=== PATIENT | female | born 1980 | race Caucasian/White ===

== ENCOUNTER 2016-07-27 09:28 | Emergency (ER) | payer BC ==
--- NOTE | ~2016-07-27 | CT4 ---
[facility] A Service of [facility] RADIOLOGY TEXT RESULTS PATIENT: MARYCHUY MOYA LOCATION: [facility] : 76 UNIT #: [id number] AGE: [address]: Renzo Loco MD SEX: F ORDER DR: [id number] [facility] [address] [place], [place] [address] [id number] MR#: [id number] #: [id number] NAME: MARYCHUY MOYA. : 1980 SEX: F STUDY DATE/TIME: 07/27/2016 11:37 UNIT: [facility] ROOM: STUDY DESCRIPTION: CT Abd and Pelv Wo Cont Attending Physician: Renzo Loco M.D. Ordering Physician: Renzo Loco M.D. Primary Care Physician: Bar Moore M.D. MEDICAL IMAGING REPORT This report is preliminary unless electronic signature is present EXAM Abdomen and pelvis CT no contrast 07/27/2016 INDICATION 36-year-old female with flank pain on the left, sharp throbbing pain that began yesterday. History of kidney stones and hypertension. Status post appendectomy. TECHNIQUE AND COMPARISON Noncontrast CT of the abdomen and pelvis was performed and compared with 07/13/2012. This CT exam was performed with one or more of the following radiation dose reduction techniques: Automatic exposure control, adjustment of mA and/or kV according to patient size, and iterative reconstruction. FINDINGS CT ABDOMEN: Exam degraded by noncontrast technique. Included lung bases are clear. No pleural or pericardial effusion. Probable sebaceous cyst or epidermal inclusion cyst associated with the subcutaneous fat of the upper abdominal/lower thoracic wall measuring 1.3 cm. This cannot be further assessed with noncontrast CT and is entirely nonspecific. Aorta demonstrates no aneurysm. The spleen, adrenal glands, and pancreas are unremarkable. Gallbladder demonstrates probably uncomplicated cholelithiasis. The liver demonstrates a stable tiny cyst measuring 5 mm in the right hepatic lobe. Kidneys demonstrate no radiopaque stone, hydronephrosis, or focal inflammatory change. To the extent visualized, the ureters are unremarkable. No fluid collection or adenopathy. CT PELVIS: The bladder is distended but, otherwise, unremarkable. There are probable vascular calcifications in the pelvis. Some of which are in close proximity to the expected location of the UVJ but there is no STS. [facility] A Service of [facility] RADIOLOGY TEXT RESULTS PATIENT: MARYCHUY MOYA LOCATION: [facility] : 76 UNIT #: [id number] AGE: [address]: Renzo Loco MD SEX: F ORDER DR: secondary sign of obstruction on either side. Correlate with urinalysis. No drainable fluid collection in the pelvis or adnexal mass. Appendix surgically absent. Inguinal canals are unremarkable. Osseous structures demonstrate no suspicious bone lesion. IMPRESSION 1. Essentially negative noncontrast abdomen and pelvis CT. No hydronephrosis or radiopaque stone associated with either kidney. Probable vascular calcifications in the pelvis. 2. Stable cyst within the liver. 3. Status post appendectomy. Dictated by... Yonatan Ceballos M.D. THIS IS AN ELECTRONICALLY VERIFIED REPORT Yonatan Ceballos M.D. at 07/28/2016 9:49 AM BRIGITTE/lois TD: 07/27/2016 17:19 JOB #: [id number] MEDICAL IMAGING REPORT Page 1 of 1 COPY
[~2016-07-27 09:28] MED LIST: CLEOCIN PO; NEXIUM PO; VICODIN 5/1 TAB 5/50 PO; VICODIN 5/500 T1 TAB PO
[2016-07-27 10:33] LABS: URINE SOURCE CLEAN CATCH
[2016-07-27 10:40] LABS: URINE APPEARANCE CLOUDY; URINE BILIRUBIN NEG (NEG); URINE BLOOD TRACE (NEG); URINE COLOR YELLOW; URINE GLUCOSE NEG (NEG); URINE KETONE NEG (NEG); URINE LEUKOCYTE ESTERASE 3+ (NEG); URINE NITRATE NEG (NEG); URINE PROTEIN NEG (NEG); URINE SPECIFIC GRAVITY 1.006 (1.003-1.035); URINE UROBILINOGEN 0.2 MG/DL (NEG)
[2016-07-27 10:42] LABS: BASOPHIL% 0.5 % (0-2.5); EOSINOPHIL# 0.1 X10e3 (0-0.7); EOSINOPHIL% 2.2 % (0.0-7.0); HEMATOCRIT 41.2 % (35.0-45.0); HEMOGLOBIN 14.1 gm/dL (12.0-16.0); LYMPHOCYTE# 1.2 X10e3 (1.0-3.5); LYMPHOCYTE% 20.9 % (17.0-45.0); MEAN CELL VOLUME 90.3 FL (83-96); MEAN CORPUSCULAR HGB CONC 34.3 g/dL (30-36); MEAN PLATELET VOLUME 8.6 FL (6.5-11.5); MONOCYTE# 0.5 X10e3 (0-1.0); MONOCYTE% 8.3 % (3.0-12.0); NEUTROPHIL# 3.9 X10e3 (1.5-7.1); NEUTROPHIL% 68.1 % (40-75); PLATELET COUNT 196 X10e3 (140-420); RED BLOOD COUNT 4.56 X10e (3.90-5.30); RED CELL DISTRIBUTION WIDTH 13.6 % (11.0-15.5); WHITE BLOOD COUNT 5.7 X10e3 (4.0-10.5)
[2016-07-27 10:43] LABS: URBCS1 AUWI 0-2 /[HPF] (0-2); URINE BACTERIA AUWI 3+ (NEGATIVE); URINE SQUAMOUS EPITHELIAL CELL FEW /[HPF]; UWBCS1 AUWI 50-100 (0-5)
[2016-07-27 10:43] LABS: DIFF IND NO
[2016-07-27 11:23] LABS: BUN/CREATININE RATIO 12.5; CALCIUM SERUM 9.4 mg/dL (8.4-10.2); CREATININE SERUM 0.8 mg/dL (0.6-1.4); GLOM FILT RATE Estimated 93.6 mL/min (>60); POTASSIUM 3.7 mmol/L (3.5-5.1)
== END 2016-07-27 14:04 | disposition home or self-care (01) ==
LOC: CED 09:28
PROVIDERS: Emergency Medicine
DX: N10 Acute pyelonephritis (principal); N30.90 Cystitis, unspecified without hematuria; Z88.0 Allergy status to penicillin; Z88.2 Allergy status to sulfonamides; Z88.6 Allergy status to analgesic agent; Z88.1 Allergy status to other antibiotic agents; Z79.899 Other long term (current) drug therapy
CPT/HCPCS: 36415; 74176; 80048; 81003; 84703; 85025; 96361; 96365; 96375; 99284; J0696; J1885; J2270; J2405